=== PATIENT | female | born 1955 | race Two or more races ===

== ENCOUNTER → 2024-11-04 | Outpatient (CLI) | payer MEDICARE ==
[2024-11-04 13:09] LABS: Alanine Aminotransferase 10 U/L (7-40); Albumin 4.3 g/dL (3.2-4.8); Alkaline Phosphatase 72 U/L (46-116); Anion Gap 9 (5-15); BUN/Creatinine Ratio 19.1 (10.0-20.0); Bilirubin, Total 0.7 mg/dL (0.2-1.0); Blood Urea Nitrogen 27 mg/dL (9-23); Calcium 9.8 mg/dL (8.7-10.4); Carbon Dioxide 28 mmol/L (20-31); Chloride 103 mmol/L (98-107); Glucose 90 mg/dL (74-106); Potassium 4.8 mmol/L (3.5-5.1); Sodium 140 mmol/L (136-145); Total Protein 7.4 g/dL (5.7-8.2)
== END | disposition home or self-care (01) ==
LOC: LAB 12:23
DX: C56.9 Malignant neoplasm of unspecified ovary (principal)
CPT/HCPCS: 36415; 80053

== ENCOUNTER 2025-02-14 12:33 | Outpatient (CLI) | payer MEDICARE ==
[2025-02-14 13:13] LABS: Hematocrit 39.7 % (36.0-46.0); Hemoglobin 13.1 g/dL (12.2-16.2); Mean Corpuscular Hemoglobin 33.0 pg (28.0-32.0); Mean Corpuscular Volume 99.8 fL (80.0-100.0); Nucleated Red Blood Cells % 0.0 %
[2025-02-14 13:42] LABS: Anion Gap 7 (5-15); Carbon Dioxide 27 mmol/L (20-31); Chloride 103 mmol/L (98-107); Sodium 137 mmol/L (136-145)
[2025-02-14 13:43] LABS: Calcium 10.3 mg/dL (8.7-10.4)
[2025-02-14 13:48] LABS: BUN/Creatinine Ratio 17.4 (10.0-20.0); Blood Urea Nitrogen 27 mg/dL (9-23); Glucose 88 mg/dL (74-106)
[2025-02-14 14:08] LABS: Potassium 5.8 mmol/L (3.5-5.1)
[2025-02-14 16:06] LABS: Chloride 102 mmol/L (98-107); Potassium 4.6 mmol/L (3.5-5.1)
[2025-02-14 16:07] LABS: Anion Gap 8 (5-15); Carbon Dioxide 26 mmol/L (20-31)
[2025-02-14 16:08] LABS: Calcium 10.0 mg/dL (8.7-10.4)
[2025-02-14 16:13] LABS: BUN/Creatinine Ratio 14.9 (10.0-20.0); Glucose 97 mg/dL (74-106)
[2025-02-14 16:15] LABS: Blood Urea Nitrogen 26 mg/dL (9-23); Sodium 136 mmol/L (136-145)
== END 2025-02-14 17:00 | disposition home or self-care (01) ==
LOC: LAB 12:33
DX: Z01.812 Encounter for preprocedural laboratory examination (principal); Z79.899 Other long term (current) drug therapy
CPT/HCPCS: 36415; 80048; 85025